=== PATIENT | male | born 1995 | race Caucasian/White ===

== ENCOUNTER 2016-09-06 12:25 | Emergency (ER) | payer BC, OTHER ==
[~2016-09-06] VITALS: Ht 182.9 cm; Wt 90.7 kg
[~2016-09-06 12:25] MED LIST: VITAMIN C PO
[2016-09-06 12:29] VITALS: TEMP 36.8; Ht 182.9 cm; Wt 90.7 kg
--- NOTE | 2016-09-06 13:09 | DIAGNOSTIC IMAGING REPORT ---
LEFT TIBIA/FIBULA 2 VIEWS ROUTINE CLINICAL HISTORY: Left leg laceration, cellulitis. ?Fx, FB COMPARISON: None FINDINGS: No acute fracture of the left tibia or fibula is identified. No radiopaque foreign body is identified. Lateral view demonstrates soft tissue swelling overlying the mid shaft of the left tibia. IMPRESSION: 1. No acute fracture of the left tibia or fibula. 2. No radiopaque foreign body identified. 3. Soft tissue swelling overlying the mid aspect of the left lower leg. Electronically signed by: Joe Fair M.D. 09/06/2016 1:07 PM Dictated Date/Time: 09/06/2016 1:06 PM
[2016-09-06] MEDS ORDERED: SULFAMETHOXAZOLE/TRIMETHOPRIM DS 800/160MG TAB PO STA (14:20)
[2016-09-06] MEDS ORDERED: CEPHALEXIN MONOHYDRATE 250 MG CAP PO STA (14:20)
[2016-09-06] MEDS ORDERED: SULF800T23 PO (14:22)
[2016-09-06] MEDS ORDERED: CEPH500C PO (14:22)
[2016-09-06] MEDS ORDERED: BCTCR/30 EXT (14:25)
--- NOTE | 2016-09-06 14:26 | EMERGENCY ROOM VISIT NOTE ---
History First contact with patient: 12:32 Chief Complaint: LEG PAIN,LEG INJURY Stated Complaint: SWOLLEN L LEG WITH DEEP CUT History of Present Illness The patient is a 21 year old male who presents to the Emergency Room via private vehicle with complaints of "swollen left leg with deep cut". Patient states that around 4 PM he was at a fraternity house on Tuesday and he attempted to jump a rock wall when he struck his left anterior bai off of the rock wall. He notes that this cut open and began bleeding a lot. He cleansed the region with a decontaminant white. He has pain in the left anterior bai which he rates as a 6/10. He also points to redness which began around the wound. He has a sharp pain in the region with walking. He denies any loss of consciousness, striking his head, fevers or chills. His tetanus is up-to-date. Review of Systems A complete 6-point Review of Systems was discussed with the patient, with pertinent positives and negatives listed in the History of Present Illness. All remaining Review of Systems questions can be considered negative unless otherwise specified. Past Medical/Surgical History No pertinent past medical history. Family History No pertinent family history. Social History Smoking Status: Never Smoker Social History: Patient lives with friends in [place]. Current/Historical Medications Scheduled Cephalexin Monohydrate (Keflex), 500 MG PO QID Mupirocin 2% (Bactroban 2%), 1 APPLN EXT UD Sulfa/Trimethoprim (Bactrim Ds 800MG/160MG), 1 TAB PO BID Allergies Coded Allergies: [place] (Verified Allergy, Unknown, RASH, 09/27/14) Physical Exam Vital Signs Date Time Temp Pulse Resp B/P Pulse Ox O2 Delivery O2 Flow Rate FiO2 09/06/16 14:53 69 18 139/68 97 09/06/16 12:29 36.8 69 18 148/86 97 Room Air Physical Exam VITAL SIGNS - Vital signs and nursing notes were reviewed. Patient is afebrile , blood pressure 148/86, non-tachycardic and is saturating well on room air at 97%. GENERAL -21-year-old male appearing his stated age who is in no acute distress. Nontoxic in appearance. Communicates well with provider and answers questions appropriately. SKIN - there is a 1 cm x 2 cm yellow wound on the anterior left tibia, this is mid shaft. Surrounding this region there is a 12 cm x 13 cm erythematous region. This is consistent with cellulitis and small abscess. No lymphangitic streaking. Full range of motion and strength. No evidence of compartment syndrome. Vascular intact. Neurologically intact. Medical Decision & Procedures ER Provider Diagnostic Interpretation: LEFT TIBIA/FIBULA 2 VIEWS ROUTINE CLINICAL HISTORY: Left leg laceration, cellulitis. ?Fx, FB COMPARISON: None FINDINGS: No acute fracture of the left tibia or fibula is identified. No radiopaque foreign body is identified. Lateral view demonstrates soft tissue swelling overlying the mid shaft of the left tibia. IMPRESSION: 1. No acute fracture of the left tibia or fibula. 2. No radiopaque foreign body identified. 3. Soft tissue swelling overlying the mid aspect of the left lower leg. Electronically signed by: Joe Fair M.D. 09/06/2016 1:07 PM Dictated Date/Time: 09/06/2016 1:06 PM Medications Administered Medications (Trade) Dose Ordered Sig/Speedy Route Start Time Stop Time Status Last Admin Dose Admin Cephalexin Monohydrate (Keflex Cap) 500 mg NOW STAT PO 09/06/16 14:20 09/06/16 14:21 DC 09/06/16 14:53 500 MG Trimethoprim/ Sulfamethoxazole (Septra Ds 800/ 160MG Tab) 1 tab NOW STAT PO 09/06/16 14:20 09/06/16 14:21 DC 09/06/16 14:52 1 TAB Medical Decision Patient was seen and evaluated as above. After obtaining a thorough history and physical examination radiographs of the left leg was obtained over concern for potential retained foreign body or small chip fracture. Negative for either as noted above. There was a small purulent area in the center of the cellulitic region that was thoroughly irrigated with normal saline under pressure after verifying patient consent. A small amount of purulent material was expressed and sent for culture. No evidence of compartment syndrome. The wound was thoroughly irrigated with water and cleansed. It was then covered with a small amount of bacitracin but not overlying the actual wound channel that is roughly 2 mm x 2 mm to an unknown depth. The x-ray verified no fracture. The small wound channel was copiously irrigated with normal saline under pressure. Patient tolerated this well. Telfa was applied and secured in place with Coban. He was instructed to replace this if it gets wet and to change it daily. He'll be placed upon 10 days of Keflex as well as Bactrim. Keflex 500 mg by mouth 4 times daily and the Bactrim is 1 double strength tablet twice daily for 10 days. He was also prescribed mupirocin. He is to return in 48 hours for recheck of the wound, or sooner with worsening of symptoms. He was educated upon management, had questions answered prior to discharge, and was discharged home in good condition. In evaluation treatment of the patient the following differential diagnoses were entertained: Cellulitis, fracture, abscess, compartment syndrome, among others. Impression Primary Impression: Leg pain, left Additional Impression: Cellulitis Departure Information Dispostion Home / Self-Care Condition GOOD Prescriptions Mupirocin 2% (Bactroban 2%) 30 Gm Cr 1 APPLN EXT UD for 10 Days, #1 TUBE Prov: Pedro Joshi PA-C 09/06/16 Sulfa/Trimethoprim (Bactrim Ds 800MG/160MG) Tab 1 TAB PO BID for 10 Days, #20 TAB Prov: Pedro Joshi PA-C 09/06/16 Cephalexin Monohydrate (Keflex) 500 Mg Cap 500 MG PO QID for 10 Days, #40 CAP Prov: Pedro Joshi PA-C 09/06/16 [facility] ([facility]) Patient Instructions [facility] Additional Instructions You were seen in the emergency Department for a skin infection of your left leg. This has been rinsed thoroughly. This has been cultured, meaning that if the antibiotics you have been placed upon are not the best then you'll be called within 48 hours so that these can be changed. You've been prescribed Keflex. This is an antibiotic. This is one tablet 4 times daily for 10 days. You've been prescribed Bactrim. This is an antibiotic. This is one tablet every 12 hours for 10 days. Both of these have the ability to cause upset stomach and diarrhea. For that reason does recommend he take these with food. If you develop a rash, difficulty breathing or any troubles please stop this immediately, dial 911 or return to the emergency department Please return to the emergency department in 48 hours for a recheck of your wound. When you come in just tell them you are here for a wound recheck. Please return sooner for any fevers, chills, worsening of the redness beyond the line as we discussed, or any new/concerning symptoms. Please change the bandage daily as we discussed. You've also been prescribed an ointment. Please apply this once daily. Please return to the emergency department with any new/concerning symptoms. Problem Qualifiers Additional Impression: Cellulitis Site of cellulitis: extremity Site of cellulitis of extremity: lower extremity Laterality: left Qualified Codes: L03.116 - Cellulitis of left lower limb
[2016-09-06 14:53] VITALS: BP 139/68; PULSE 69; O2SAT 97
--- NOTE | 2016-09-07 12:20 | Pharmacy Progress Note ---
ED Pharmacist Culture FollowUp Date of Service: Sep 07, 2016. Patient was sent home with a prescription for cephalexin and Bactrim. Cephalexin should cover the Group A Strep growing from the patient's wound culture. I darren w Pedro - culture of the purulent drainage from I&D may not have been obtained therefore will also continue the Bactrim for now for MRSA coverage. Patient is to come back to the ER on 09/08 for follow-up. May re- evaluate need for Bactrim at that time.
[2016-09-08] MEDS ORDERED: CLIN300C2 PO (11:09)
--- NOTE | 2016-09-08 13:24 | Pharmacy Progress Note ---
ED Pharmacist Culture FollowUp Date of Service: Sep 08, 2016. Patient returned to the ER / for worsening symptoms and was admitted to the hospital. Management of cellulitis per primary team. No further ER intervention required.
== END 2016-09-06 14:54 | disposition home or self-care (01) ==
LOC: C.EDB 12:26 → C.EDD 14:54
DX: M79.605 Pain in left leg (principal); L03.116 Cellulitis of left lower limb

== ENCOUNTER 2016-09-07 14:59 | Inpatient (IN) | payer OTHER ==
[~2016-09-07] VITALS: Ht 182.9 cm; Wt 78.3 kg
[~2016-09-07 14:59] MED LIST changes: +BCTCR/30 EXT; +CEPH500C PO; +SULF800T23 PO; -VITAMIN C PO
[2016-09-07] MEDS ORDERED: CLINDAMYCIN IV 900 MG in DEXTROSE 5% ADD-VANTAGE 100ML 100 ML IV ONE (17:30)
[2016-09-07 17:50] LABS: BASO % 0.2 %; BASO ABS # 0.02 K/uL (0-0.2); COMPLETE YES; EOS % 0.5 %; HEMATOCRIT 39.6 % (42-52); IG% 0.3 %; LYMPH % 14.9 %; LYMPH ABS # 1.72 K/uL (1.2-3.4); MEAN CORPUSCULAR HEMOGLOBIN 30.8 pg (25-34); MEAN CORPUSCULAR HGB CONC 34.6 g/dl (32-36); MEAN PLATELET VOLUME 10.5 fL (7.4-10.4); NEUT % 73.1 %; PLATELET COUNT 178 K/uL (130-400); RED BLOOD COUNT 4.45 M/uL (4.7-6.1); WHITE BLOOD COUNT 11.57 K/uL (4.8-10.8)
[2016-09-07 18:03] LABS: BUN/CREATININE RATIO 11.2 (10-20); CALCIUM 8.6 mg/dl (8.5-10.1); CREATININE 1.2 mg/dl (0.60-1.40); POTASSIUM 3.8 mmol/L (3.5-5.1)
[2016-09-07 18:06] LABS: ALB/GLOB RATIO 0.9 (0.9-2)
--- NOTE | 2016-09-07 18:08 | DIAGNOSTIC IMAGING REPORT ---
ADDENDUM Additional clinical information indicates the possibility of a penetrating wound/infection. Osteomyelitis therefore must be a diagnostic consideration. An MRI of the lower leg is suggested as follow-up. Electronically signed by: Dom Collado M.D. 09/07/2016 6:22 PM Dictated Date/Time: 09/07/2016 6:22 PM ORIGINAL REPORT LEFT TIBIA/FIBULA 2 VIEWS ROUTINE CLINICAL HISTORY: Pt c/o left leg pain pain COMPARISON: None. DISCUSSION: Subtle periosteal Reaction mid tibial shaft. No well-defined evidence for acute fracture. Mild pretibial soft tissue edema. IMPRESSION: Subtle periosteal reaction mid tibia with mild pretibial soft tissue edema. Ag[place]al splints versus a nonvisualized stress related fracture/phenomenon must be considered Electronically signed by: Dom Collado M.D. 09/07/2016 6:06 PM Dictated Date/Time: 09/07/2016 6:05 PM
[2016-09-07] MEDS ORDERED: GADAVIST IV PRN (21:00)
[2016-09-07] MEDS ORDERED: MAGNESIUM HYDROXIDE SUSP 30 ML UDC PO PRN (21:15)
[2016-09-07] MEDS ORDERED: ALUMINUM/MAGNESIUM/SIMETH (MAALOX MAX) 30 ML UDC PO PRN (21:15)
[2016-09-07] MEDS ORDERED: MoRPHine SULFATE 2 MG/ML CARP IV PRN (21:15)
[2016-09-07] MEDS ORDERED: ACETAMINOPHEN 325 MG TAB PO PRN (21:15)
[2016-09-07] MEDS ORDERED: VANCOMYCIN INJ 1,000 MG in SODIUM CHLORIDE 0.9% 250ML 250 ML IV SCH (21:15)
[2016-09-07] MEDS ORDERED: ONDANSETRON INJ 2 MG/ML 2 ML VIAL IV PRN (21:15)
--- NOTE | 2016-09-07 21:25 | DIAGNOSTIC IMAGING REPORT ---
MRI left lower leg LEFT LOWER EXT NON JOINT COMBO CLINICAL HISTORY: left lower leg cellulitis, r/o osteo trauma. Infection. TECHNIQUE: Multi axial MRI acquisition COMPARISON STUDY: None FINDINGS: Generalized soft tissue edematous change within the subcutaneous fat. This is seen primarily anterior to the tibia but is also seen to a lesser extent peripherally about the lower leg. No significant abnormal muscular signal characteristics. Suggestion of slight degree of periostitis anterior aspect of the midshaft tibia. No evidence for bone marrow replacement. No evidence for osteomyelitis. No evidence for a drainable abscess or collection. IMPRESSION: 1. Diffuse subcutaneous fat cellulitis versus simple edema seen anterior to the tibia as well as peripherally about the entire lower leg. 2. No involvement of the musculature. 3. A potential slight degree of periostitis anterior aspect of the tibia. 4. No evidence for osteomyelitis. 5. No evidence for drainable abscess or collection Electronically signed by: Dom Collado M.D. 09/07/2016 9:24 PM Dictated Date/Time: 09/07/2016 9:19 PM
[2016-09-07] MEDS ORDERED: SODIUM CHLORIDE 0.9% IV SCH (21:30)
[2016-09-07] MEDS ORDERED: VANCOMYCIN IV SCH (21:30)
[2016-09-07] MEDS ORDERED: VANCOMYCIN CONSULT ACTIVE PRN (22:45)
--- NOTE | 2016-09-07 22:59 | HISTORY & PHYSICAL EXAMINATION ---
DATE OF ADMISSION: 09/07/2016 CHIEF COMPLAINT: Left leg infection. HISTORY OF PRESENT ILLNESS: This is a 21-year-old male who presented to Emergency Room a second time because of infection in his left leg, so he reported that on Tuesday he was hopping over the brick wall and he hit his left leg and after that he developed some redness and pain when he was walking. Yesterday it got really worse to the point where he came to the Emergency Room and he was prescribed Bactrim and Keflex, was discharged home and was asked to watch for signs of worsening of redness. Today he noted that his pain was to the point that he could barely walk, he had significant redness and swelling and he decided to come to the Emergency Room. In the Emergency Room, he was given clindamycin IV. He rates his pain when he walks 7/10 and about 2/10 when he rests. He denies any fever, any chills, nausea, vomiting or diarrhea. REVIEW OF SYSTEMS: Negative except as above. Ten out of fourteen systems were reviewed. SOCIAL HISTORY: Does not smoke. He drinks 2 drinks a week. Does not use drugs. FAMILY HISTORY: Negative for coronary artery disease, diabetes and cancer. ALLERGIES: TO ALMONDS. MEDICATIONS: He was prescribed yesterday Keflex 500 mg p.o. q.i.d., Bactroban 1 application externally and Bactrim 800/160 mg p.o. b.i.d. for ten days. PHYSICAL EXAMINATION: VITAL SIGNS: Temperature 37.3, pulse 64, respirations 15, blood pressure 129/61 and 99% on room air. GENERAL: Not in acute distress. HEENT: Normocephalic, atraumatic. PERRLA, EOMI. Mouth moist, no lesions. NECK: No JVD. Trachea midline. Thyroid is not enlarged. LUNGS: Clear to auscultation bilateral. No wheezes, no rhonchi. HEART: S1, S2, RRR. ABDOMEN: Soft, nontender and nondistended. Bowel sounds present bilaterally. EXTREMITIES: No clubbing, cyanosis or edema. There is a 1 x 2 cm wound on the anterior left tibia, in the mid shaft surrounding this region there is a 12 x 13 erythematous region consistent with cellulitis and possible small abscess. No lymphangitic streaking. Full range of motion. No evidence of compartment syndrome. Vascularly intact. Neurologically intact. SKIN: No rash. No jaundice. PSYCHIATRIC: Mood and judgment are normal. NEUROLOGIC: Alert, oriented x3. Motor sensory normal. Deep tendon reflexes 2+ bilateral. Cranial nerves II-XII are intact. LABORATORIES: White count of 11.5, hemoglobin 13.7 and platelets 178. Chemistry; basically normal. Lactic acid 1.0. Blood cultures are pending. He had a wound and tissue culture from 09/06/2016 showed group A beta strep moderate. He had a tibia and fibula x-ray that showed subtle periosteal reaction in the mid tibia with mild pretibial soft tissue edema point source unknown, a nonvisualized stress related fracture phenomenon must be considered; however MRI showed diffuse subcutaneous fat cellulitis versus edema seen in anterior tibia as well as peripherally above the entire lower leg. No involvement of musculature, potentially slight degree periosteitis, anterior aspect of tibia no evidence for osteomyelitis, no abscess. ASSESSMENT AND PLAN: Left leg cellulitis. Start IV vancomycin. Admit to general medical floor. Tylenol and IV morphine p.r.n. pain. Zofran p.r.n. nausea. Check complete blood count in the morning. Follow blood culture results. Start regular diet. Deep venous thrombosis prophylaxis is not required. The patient is a full code. TIME SPENT DOING THIS ADMISSION: Forty minutes. LAURA
[2016-09-08] VITALS (7 sets, daily range): BP systolic 97–108; BP diastolic 53–69; PULSE 53–64; TEMP 36.6–37; O2SAT 99–100; Ht 182.9 cm; Wt 78.3 kg
--- NOTE | 2016-09-08 00:36 | EMERGENCY ROOM VISIT NOTE ---
History First contact with patient: 17:10 Chief Complaint: WOUND INFECTION Stated Complaint: CELLULITIS Nursing Triage Summary: pt was seen here yesterday with spreading left bai infection redness has spread past markings pt has been taking ABX History of Present Illness The patient is a 21 year old male who presents to the Emergency Room with complaints of worsening left leg infection. The patient reports that he injured his left bai trying to jump over a concrete wall 3 days ago. He states that he developed redness and swelling in the area 2 days ago and was seen here yesterday. He was placed on antibiotics and had cultures taken. He has been taking the antibiotics as prescribed, but states that the redness is spreading past the markings on his leg. He rates the discomfort a 4/10. He denies any fevers. He is having difficulty walking due to the pain. He has been taking the antibiotics as prescribed. He denies any numbness or weakness. He denies any streaking up the leg. Review of Systems A complete 10-point Review of Systems was discussed with the patient, with pertinent positives and negatives listed in the History of Present Illness. All remaining Review of Systems questions can be considered negative unless otherwise specified. Social History Smoking Status: Never Smoker Current/Historical Medications Scheduled Cephalexin Monohydrate (Keflex), 500 MG PO QID Mupirocin 2% (Bactroban 2%), 1 APPLN EXT UD Sulfa/Trimethoprim (Bactrim Ds 800MG/160MG), 1 TAB PO BID Allergies Coded Allergies: [place] (Verified Allergy, Unknown, RASH, 09/27/14) Physical Exam Vital Signs Date Time Temp Pulse Resp B/P Pulse Ox O2 Delivery O2 Flow Rate FiO2 09/07/16 19:45 64 15 129/61 99 Room Air 09/07/16 17:49 52 18 105/60 99 Room Air 09/07/16 15:34 37.3 65 16 126/75 100 Pain Rating (0-10): 2.0 Physical Exam VITALS: Vitals are noted on the nurse's note and reviewed by myself. Vital signs stable. GENERAL: This is a 21-year-old male, in no acute distress, nondiaphoretic, well- developed well-nourished. HEART: Regular rate and rhythm without murmurs gallops or rubs. LUNGS: Clear to auscultation bilaterally without wheezes, rales or rhonchi. EXTREMITIES: There is an area of cellulitis extending over most of the left lower leg which extends several inches past the marked outline. There is a central ulceration with white-yellow drainage. There is no fluctuance or induration. There is no lymphangitic streaking. NEURO: Patient was alert and oriented to person place and time. Normal sensation to light and sharp touch. Medical Decision & Procedures ER Provider Diagnostic Interpretation: ADDENDUM Additional clinical information indicates the possibility of a penetrating wound/infection. Osteomyelitis therefore must be a diagnostic consideration. An MRI of the lower leg is suggested as follow-up. Electronically signed by: Dom Collado M.D. 09/07/2016 6:22 PM Dictated Date/Time: 09/07/2016 6:22 PM ORIGINAL REPORT LEFT TIBIA/FIBULA 2 VIEWS ROUTINE CLINICAL HISTORY: Pt c/o left leg pain pain COMPARISON: None. DISCUSSION: Subtle periosteal Reaction mid tibial shaft. No well-defined evidence for acute fracture. Mild pretibial soft tissue edema. IMPRESSION: Subtle periosteal reaction mid tibia with mild pretibial soft tissue edema. Bai splints versus a nonvisualized stress related fracture/phenomenon must be considered Electronically signed by: Dom Collado M.D. Laboratory Results 09/07/16 17:25 Red Blood Count 4.45, Mean Corpuscular Volume 89.0, Mean Corpuscular Hemoglobin 30.8, Mean Corpuscular Hemoglobin Concent 34.6, Mean Platelet Volume 10.5, Neutrophils (%) (Auto) 73.1, Lymphocytes (%) (Auto) 14.9, Monocytes (%) (Auto) 11.0, Eosinophils (%) (Auto) 0.5, Basophils (%) (Auto) 0.2, Neutrophils # (Auto ) 8.46, Lymphocytes # (Auto) 1.72, Monocytes # (Auto) 1.27, Eosinophils # (Auto ) 0.06, Basophils # (Auto) 0.02 09/07/16 17:25 Test 09/07/16 17:25 09/07/16 17:28 09/07/16 17:36 White Blood Count 11.57 K/uL (4.8-10.8) Red Blood Count 4.45 M/uL (4.7-6.1) Hemoglobin 13.7 g/dL (14.0-18.0) Hematocrit 39.6 % (42-52) Mean Corpuscular Volume 89.0 fL (80-100) Mean Corpuscular Hemoglobin 30.8 pg (25-34) Mean Corpuscular Hemoglobin Concent 34.6 g/dl (32-36) Platelet Count 178 K/uL (130-400) Mean Platelet Volume 10.5 fL (7.4-10.4) Neutrophils (%) (Auto) 73.1 % Lymphocytes (%) (Auto) 14.9 % Monocytes (%) (Auto) 11.0 % Eosinophils (%) (Auto) 0.5 % Basophils (%) (Auto) 0.2 % Neutrophils # (Auto) 8.46 K/uL (1.4-6.5) Lymphocytes # (Auto) 1.72 K/uL (1.2-3.4) Monocytes # (Auto) 1.27 K/uL (0.11-0.59) Eosinophils # (Auto) 0.06 K/uL (0-0.5) Basophils # (Auto) 0.02 K/uL (0-0.2) RDW Standard Deviation 43.2 fL (36.4-46.3) RDW Coefficient of Variation 13.3 % (11.5-14.5) Immature Granulocyte % (Auto) 0.3 % Immature Granulocyte # (Auto) 0.04 K/uL (0.00-0.02) Anion Gap 7.0 mmol/L (3-11) Est Creatinine Clear Calc Drug Dose 106.9 ml/min Estimated GFR () 99.6 Estimated GFR (Non- 85.9 BUN/Creatinine Ratio 11.2 (10-20) Calcium Level 8.6 mg/dl (8.5-10.1) Total Bilirubin 0.3 mg/dl (0.2-1) Aspartate Amino Transf (AST/SGOT) 10 U/L (15-37) Alanine Aminotransferase (ALT/SGPT) 18 U/L (12-78) Alkaline Phosphatase 62 U/L (45-117) Total Protein 7.7 gm/dl (6.4-8.2) Albumin 3.7 gm/dl (3.4-5.0) Globulin 4.0 gm/dl (2.5-4.0) Albumin/Globulin Ratio 0.9 (0.9-2) Bedside Lactic Acid Venous 1.06 mmol/L (0.90-1.70) Lactic Acid Level 1.1 mmol/L (0.4-2.0) Medications Administered Medications (Trade) Dose Ordered Sig/Speedy Route Start Time Stop Time Status Last Admin Dose Admin Clindamycin Phosphate/Dextrose (Cleocin Iv/ Dextrose Add-[place] 100ML) 106 ml @ 100 mls/hr ONE ONCE IV 09/07/16 17:30 09/07/16 18:33 DC 09/07/16 17:44 100 MLS/HR Medical Decision Differential diagnosis includes cellulitis, failed outpatient therapy, abscess, among others. The patient was evaluated as above. Labs were drawn and IV access was obtained. Blood cultures were drawn. Imaging studies were performed and read by radiology as above. The patient was medicated with 900 mg clindamycin IV. The patient was reassessed multiple times during their stay in the emergency department and remained in stable condition. The patient is a 21-year-old male who presents today complaining of worsening left leg infection. Previous records were reviewed. The patient did have wound cultures yesterday which grew out group A beta strep. The patient was given IV clindamycin at the recommendation of the ED pharmacist. His physical exam today seems to be significantly worse than yesterday. Labs revealed a mild leukocytosis with left shift. Lactic acid was not elevated. The patient is afebrile. Tilt/fib x-ray was performed and read by radiology with some findings consistent with periosteal reaction. MRI was recommended and was ordered. As the patient has been feeling outpatient therapy, he will be admitted for IV antibiotics and further workup. Case was discussed with the [facility] hospitalist, Dr. Hatfield, who agreed to evaluate the patient. Impression Primary Impression: Cellulitis of left lower leg Departure Information Dispostion Still a Patient Condition FAIR Referrals No Doctor, Assigned (PCP) Forms WORK / SCHOOL INSTRUCTIONS, HOME CARE DOCUMENTATION FORM, IMPORTANT VISIT INFORMATION Patient Instructions My [facility]
[2016-09-08] MEDS ORDERED: VANCOMYCIN INJ 1,000 MG in SODIUM CHLORIDE 0.9% 250ML 250 ML IV SCH (06:00)
[2016-09-08 07:42] LABS: BASO % 0.2 %; BASO ABS # 0.02 K/uL (0-0.2); EOS % 0.8 %; HEMATOCRIT 37.4 % (42-52); IG% 0.1 %; LYMPH % 19.8 %; LYMPH ABS # 1.72 K/uL (1.2-3.4); MEAN CELL VOLUME 89.3 fL (80-100); MEAN CORPUSCULAR HEMOGLOBIN 30.5 pg (25-34); MEAN PLATELET VOLUME 10.5 fL (7.4-10.4); MONO % 13.7 %; NEUT % 65.4 %; PLATELET COUNT 151 K/uL (130-400); RED BLOOD COUNT 4.19 M/uL (4.7-6.1); WHITE BLOOD COUNT 8.69 K/uL (4.8-10.8)
[2016-09-08 07:44] LABS: COMPLETE YES; MEAN CORPUSCULAR HGB CONC 34.2 g/dl (32-36)
[2016-09-08 07:55] LABS: BUN/CREATININE RATIO 13.5 (10-20); CALCIUM 8.3 mg/dl (8.5-10.1); POTASSIUM 3.9 mmol/L (3.5-5.1)
[2016-09-08] MEDS ORDERED: INFLUENZA ADMINISTRATION CHARGE ONE (08:00)
[2016-09-08] MEDS ORDERED: INFLUENZA VIRUS QUAD VACCINE 0.5 ML SYR IM. ONE (08:00)
--- NOTE | 2016-09-08 11:08 | Discharge Instructions ---
Discharge Instructions Admission Reason for Admission: Cellulitis Discharge Discharge Diagnosis / Problem: left lower leg cellulitis Discharge Goals Goal(s): Diagnostic testing Activity Recommendations Activity Limitations: as noted below (no intentional lower extremity excersice for two weeks) Lifting Limitations: until after follow-up appointment . Current Hospital Diet Patient's current hospital diet: Regular Diet Discharge Diet Recommended Diet: Regular Diet Pending Studies Studies pending at discharge: yes List of pending studies: blood cultures Medical Emergencies . Who to Call and When: Medical Emergencies: If at any time you feel your situation is an emergency, please call 911 immediately. . Non-Emergent Contact Non-Emergency issues call your: Primary Care Provider Call Non-Emergent contact if: temperature is above 101.5, your pain is worsening . . "Provider Documentation" section prepared by Hi Pierce. VTE Core Measure Inpt VTE Proph given/why not?: Treatment not indicated
[2016-09-08] MEDS ORDERED: CLIN300C2 PO (11:09)
[2016-09-08] MEDS ORDERED: VANCOMYCIN INJ 1,200 MG in SODIUM CHLORIDE 0.9% 250ML 250 ML IV SCH (14:00)
--- NOTE | 2016-09-08 17:14 | Discharge Summary ---
Discharge Summary Admission Date: Sep 07, 2016 at 21:06 Discharge Date: Sep 08, 2016 Discharge Disposition: Home Principal Diagnosis: left lower extremity cellulitis Procedures: MRI of left lower leg 1. Diffuse subcutaneous fat cellulitis versus simple edema seen anterior to the tibia as well as peripherally about the entire lower leg. 2. No involvement of the musculature. 3. A potential slight degree of periostitis anterior aspect of the tibia. 4. No evidence for osteomyelitis. 5. No evidence for drainable abscess or collection Medication Reconciliation New Medications: Clindamycin Hcl (Cleocin) 300 Mg Cap 300 MG PO TID for 10 Days, #30 CAP Continued Medications: Mupirocin 2% (Bactroban 2%) 30 Gm Cr 1 APPLN EXT UD for 10 Days, #1 TUBE Discontinued Medications: Cephalexin Monohydrate (Keflex) 500 Mg Cap 500 MG PO QID for 10 Days, #40 CAP Sulfa/Trimethoprim (Bactrim Ds 800MG/160MG) Tab 1 TAB PO BID for 10 Days, #20 TAB Discharge Exam Review of Systems: Constitutional: No chills, No fever Respiratory: No cough, No sputum Cardiovascular: No chest pain, No orthopnea Abdomen: No nausea, No pain, No vomiting Musculoskeletal: + muscle pain, + swelling, No calf pain Genitourinary - Male: No dysuria, No hematuria Integumentary: + problem reported (open area of abrasion and surrounding induration) Physical Exam: General Appearance: WD/WN, no apparent distress Neck: supple, no JVD Respiratory/Chest: chest non-tender, lungs clear, normal breath sounds Cardiovascular: regular rate, rhythm, no murmur Abdomen / GI: normal bowel sounds, non tender, soft Extremities: no pedal edema, normal range of motion Neurologic/Psychiatric: alert, oriented x 3 Hospital Course 21 male with left lower extremity cellulitis after abrasion, contrary to other records, pt denies puncture wound or penetrating wound,states was from abrasion below pants while scaping on wall, denies submersion or other unusual circumstances good resolution of redness with vanco, will have home with wound care and clindamycin Total Time Spent: Greater than 30 minutes This includes examination of the patient, discharge planning, medication reconciliation, and communication with other providers. Discharge Instructions Please refer to the electronic Patient Visit Report (Discharge Instructions) for additional information.
[2016-09-08] MEDS ORDERED: VANCOMYCIN TROUGH SCH (21:30)
== END 2016-09-08 18:00 | disposition home or self-care (01) | DRG 603 ==
LOC: ENRESERVTM → ENRESERVDT → C.EDB 15:03 → C.MED 21:06
PROVIDERS: ADMIT Hospitalist; ATTEND Internal Medicine
DX: L03.116 Cellulitis of left lower limb (principal); S80.812S Abrasion, left lower leg, sequela; Y93.39 Activity, other involving climbing, rappelling and jumping off; W22.09XS Striking against other stationary object, sequela